=== PATIENT | male | born 1970 | race Caucasian/White ===

== ENCOUNTER 2020-12-13 08:29 | Inpatient (IN) ==
--- OUTSIDE RECORDS SUMMARY | 2020-12-13 08:32 | External Medical Summary | Continuity of Care Document ---
:1970 Author Name Julianne Lee Address Unavailable Unavailable , Care Team Providers Name Role Phone Julianne Lee Unavailable 1@[email or web address] PCP, UNKNOWN Unavailable Unavailable Problems Active medical history not documented Allergies and Adverse Reactions Allergy history not documented Medications Medications not documented Procedures Procedures not documented Immunizations Immunizations not documented Plan of Treatment Planned Observations Planned Goals not documented Results No Known Results Results not documented
--- OUTSIDE RECORDS SUMMARY | 2020-12-13 08:32 | External Medical Summary | Continuity of Care Document ---
:1970 Author Name Julianne Lee Address Unavailable Unavailable , Care Team Providers Name Role Phone Julianne Lee Unavailable [email or web address] PCP, UNKNOWN Unavailable Unavailable Problems Active medical history not documented Allergies and Adverse Reactions Allergy history not documented Medications Medications not documented Procedures Procedures not documented Immunizations Immunizations not documented Plan of Treatment Planned Observations Planned Goals not documented Results No Known Results Results not documented
--- NOTE | 2020-12-13 10:34 | Emergency Department Note ---
Impression & Plan COVID-19, Pneumonia, Hypoxia ED Provider Note NAME: MALIA ROGERS AGE: 50 SEX: M : 1970 ARRIVES VIA: Walk-In INFORMANT: Patient, ED PROVIDER(S): Armand Moody DO CHIEF COMPLAINT: Shortness of breath HPI: The patient is a 50-year-old male who presented to the emergency department for an evaluation of difficulty breathing and cough. The patient has had symptoms for approximately 8 days. He states that he has been exposed to COVID- 19 as his significant other is also positive for COVID-19. He had a test with his family doctor which was returned recently positive for COVID-19. Since that time he is noticed worsening symptoms including shortness of breath dyspnea on exertion and pain in the chest with coughing. He notices no lower extremity edema. He has had no nausea or vomiting. He has had episodes of fever and chills. The patient has been trying [id number] medication without minimal relief. His significant other was significantly dehydrated and it was recommended that he come to the emergency department for further evaluation because his symptoms appear to be worsening instead of getting better. ROS: See above HPI for pertinent positives & negatives. A total of 10 systems reviewed and were otherwise negative. PAST MEDICAL HISTORY: See Below PAST SURGICAL HISTORY: See Below FAMILY HISTORY: See Below SOCIAL HISTORY: See Below HOME MEDICATIONS: See Below ALLERGIES: See Below VITALS: See Below PHYSICAL EXAMINATION: GENERAL: The patient is awake and alert. He is somewhat anxious appearing. EYES: The conjunctivae are clear. The pupils are round and reactive. EARS, NOSE, MOUTH AND THROAT: The nose is without any evidence of any deformity. NECK: The neck is nontender and supple. RESPIRATORY: Shallow respirations were noted. There were scattered rhonchi noted throughout. There was mild conversational dyspnea appreciated. There were no retractions. CARDIOVASCULAR: Regular rate and rhythm noted there no murmurs rubs or gallops normal S1 normal S2. GASTROINTESTINAL: The abdomen is soft. Abdomen is nontender. MUSCULOSKELETAL/EXTREMITIES: There is no evidence of gross deformity full range of motion is noted in the hips and shoulders. SKIN: There is no obvious evidence of any rash. There are no petechiae, pallor or cyanosis noted. NEUROLOGIC: Patient is awake alert and oriented x3. MEDICAL DECISION MAKING: The patient is a 50-year-old male who presented to the emergency department for an evaluation of difficulty breathing. The patient was recently diagnosed with COVID-19. The patient presented to the emergency department with worsening symptoms. He was found to have significant infiltrate on chest x-ray. I discussed the patient's laboratory and radiographic studies with him. Because of the degree of symptoms I also discussed this case with the on-call [facility] hospitalist. They've agreed to evaluate the patient in the emergency department for further management and disposition. Triage Nursing notes reviewed. Prior medical records reviewed Vital Signs: reviewed and remarkable for hypoxia Reactive airway disease, pneumonia, pneumothorax, COPD, CHF, infections, cardiac ischemia, pulmonary embolism, musculoskeletal, gastrointestinal, as well as other pathologies. ER treatment provided: See below Diagnostics interpreted by me: ECG: EKG was obtained in the emergency department. My interpretation is normal sinus rhythm at 72 bpm. There was no ectopy. Inferior T wave abnormalities were noted. This was compared to a tracing from 08/19/2008. No significant changes were noted Cardiac Monitoring: An order was placed for continuous cardiac monitoring. The monitor shows a rate of 85 bpm with sinus rhythm. Laboratory studies: As stated above and show below. Imaging studies: See below Consultation(s): 1215: I discussed this case with Dr. Clark. Past Med/Surg History Medical History Hypertension Low back pain Social History Smoking Status: Former smoker Hx Alcohol Use: No Hx Substance Use: No Preferred Language: Armenian Communication Ability: Effective Bale Piler Required: No Beliefs That Will Affect Care: None Current Living Situation: Spouse Other Information That Helps Us Care for You: No Feels Safe at Home: Yes Assistive Devices: Oxygen - Continuous Allergies Allergies Allergy/AdvReac Type Severity Reaction Status Date / Time atenolol Allergy Unknown TIRED Verified 12/13/20 12:47 Home Meds Home Medications Medication Instructions Recorded Confirmed dextroamphetamine-amphetamine 20 mg PO DAILY 12/13/20 12/13/20 [Adderall XR] hydrochlorothiazide 25 mg PO DAILY 12/13/20 12/13/20 lisinopril 40 mg PO DAILY 12/13/20 12/13/20 Results & Data (ED) Vital Signs Vital Signs - 24 hr 12/13/20 08:45 12/13/20 11:33 12/13/20 11:35 Temperature 35.8 C L Temperature Source Temporal Artery Scan Pulse Rate 82 72 73 Pulse Rate [Apical] 74 Pulse Rate [Recovery] Pulse Rate from SpO2 Sensor 73 Respiratory Rate 28 H 24 19 Respiratory Rate [Recovery] Respiratory Effort / Characteristics Non-Labored Spontaneous Respiratory Depth Normal Respiratory Pattern Regular Blood Pressure 112/70 125/65 Blood Pressure [Right Arm] 125/65 Blood Pressure Mean 84 85 Blood Pressure Mean [Right Arm] 85 Pulse Oximetry 92 94 91 Pulse Oximetry [Recovery] Oxygen Delivery Method Room Air Room Air Oxygen Flow Rate Sepsis Recent Fever Within 48 Hours Yes Sepsis New/Unexplained Change in Mental Status No Sepsis Action Taken by Nursing No Action Required 12/13/20 11:44 12/13/20 12:00 12/13/20 12:20 Temperature Temperature Source Pulse Rate 74 73 Pulse Rate [Apical] Pulse Rate [Recovery] 88 Pulse Rate from SpO2 Sensor 74 73 Respiratory Rate 26 H 26 H Respiratory Rate [Recovery] 28 H Respiratory Effort / Characteristics Respiratory Depth Respiratory Pattern Blood Pressure 94/60 L Blood Pressure [Right Arm] Blood Pressure Mean 71 Blood Pressure Mean [Right Arm] Pulse Oximetry 94 94 Pulse Oximetry [Recovery] 91 Oxygen Delivery Method Room Air Oxygen Flow Rate Sepsis Recent Fever Within 48 Hours Sepsis New/Unexplained Change in Mental Status Sepsis Action Taken by Nursing 12/13/20 12:21 12/13/20 12:30 Temperature Temperature Source Pulse Rate 76 75 Pulse Rate [Apical] Pulse Rate [Recovery] Pulse Rate from SpO2 Sensor 76 77 Respiratory Rate 24 24 Respiratory Rate [Recovery] Respiratory Effort / Characteristics Respiratory Depth Respiratory Pattern Blood Pressure 113/72 Blood Pressure [Right Arm] Blood Pressure Mean 85 Blood Pressure Mean [Right Arm] Pulse Oximetry 95 99 Pulse Oximetry [Recovery] Oxygen Delivery Method Nasal Cannula Nasal Cannula Oxygen Flow Rate 4 4 Sepsis Recent Fever Within 48 Hours Sepsis New/Unexplained Change in Mental Status Sepsis Action Taken by Intermediate Medications Current Medication List: was personally reviewed by me Laboratory Data Attestation: I reviewed the patient's lab results. Result diagrams: 12/13/20 11:19 12/13/20 11:19 Lab Results 12/13/20 12/13/20 12/13/20 Range/Units 11:19 11:19 11:19 WBC 2.55 L (4.8-10.8) K/uL RBC 4.62 L (4.7-6.1) M/uL Hgb 14.1 (14.0-18.0) g/dL Hct 40.1 L (42-52) % MCV 86.8 (80-100) fL MCH 30.5 (25-34) pg MCHC 35.2 (32-36) g/dL RDW Std Deviation 40.4 (36.4-46.3) fL RDW Coeff of Barbie 12.7 (11.5-14.5) % Plt Count 140 (130-400) K/uL MPV 10.7 H (7.4-10.4) fL Immature Gran % (Auto) 0.0 % Neut % (Auto) 67.0 % Lymph % (Auto) 26.7 % [place] % (Auto) 5.9 % Eos % (Auto) 0.0 % Baso % (Auto) 0.4 % Neut # (Auto) 1.71 (1.4-6.5) K/uL Lymph # (Auto) 0.68 L (1.2-3.4) K/uL [place] # (Auto) 0.15 (0.11-0.59) K/uL Eos # (Auto) 0.00 (0-0.5) K/uL Baso # (Auto) 0.01 (0-0.2) K/uL Immature Gran # (Auto) 0.00 (0.00-0.02) K/uL PT 10.8 (9.0-12.0) Seconds INR 1.1 (0.9-1.1) APTT 29.2 (21.0-31.0) Seconds PTT Ratio 1.1 Sodium 136 (136-145) mmol/L Potassium 3.3 L (3.5-5.1) mmol/L Chloride 100 (98-107) mmol/L Carbon Dioxide 30 (21-32) mmol/L Anion Gap 5.0 (3-11) BUN 10 (7-18) mg/dl Creatinine 1.02 (0.6-1.4) mg/dl Est Cr Clr Drug Dosing 122.6 ml/min Est GFR ( Amer) 98.9 Est GFR (Non-Af Amer) 85.3 BUN/Creatinine Ratio 10.2 (10-20) Glucose 93 (70-99) mg/dl Calcium 8.1 L (8.5-10.1) mg/dl Total Bilirubin 0.4 (0.2-1) mg/dl AST 35 (15-37) U/L ALT 47 (12-78) U/L Alkaline Phosphatase 45 (45-117) U/L Troponin I < 0.015 (0-0.045) ng/ml Total Protein 6.8 (6.4-8.2) gm/dl Albumin 3.3 L (3.4-5.0) gm/dl Globulin 3.5 (2.5-4.0) gm/dl Albumin/Globulin Ratio 1.0 (0.9-2) COVID-19 Eval Order SARS-CoV-2 (PCR) (Negative) Influenza Type A (PCR) (Neg) Influenza Type B (PCR) (Neg) RSV (RT-PCR) (Neg) 12/13/20 12/13/20 Range/Units 12:25 12:25 WBC (4.8-10.8) K/uL RBC (4.7-6.1) M/uL Hgb (14.0-18.0) g/dL Hct (42-52) % MCV (80-100) fL MCH (25-34) pg MCHC (32-36) g/dL RDW Std Deviation (36.4-46.3) fL RDW Coeff of Barbie (11.5-14.5) % Plt Count (130-400) K/uL MPV (7.4-10.4) fL Immature Gran % (Auto) % Neut % (Auto) % Lymph % (Auto) % [place] % (Auto) % Eos % (Auto) % Baso % (Auto) % Neut # (Auto) (1.4-6.5) K/uL Lymph # (Auto) (1.2-3.4) K/uL [place] # (Auto) (0.11-0.59) K/uL Eos # (Auto) (0-0.5) K/uL Baso # (Auto) (0-0.2) K/uL Immature Gran # (Auto) (0.00-0.02) K/uL PT (9.0-12.0) Seconds INR (0.9-1.1) APTT (21.0-31.0) Seconds PTT Ratio Sodium (136-145) mmol/L Potassium (3.5-5.1) mmol/L Chloride (98-107) mmol/L Carbon Dioxide (21-32) mmol/L Anion Gap (3-11) BUN (7-18) mg/dl Creatinine (0.6-1.4) mg/dl Est Cr Clr Drug Dosing ml/min Est GFR ( Amer) Est GFR (Non-Af Amer) BUN/Creatinine Ratio (10-20) Glucose (70-99) mg/dl Calcium (8.5-10.1) mg/dl Total Bilirubin (0.2-1) mg/dl AST (15-37) U/L ALT (12-78) U/L Alkaline Phosphatase (45-117) U/L Troponin I (0-0.045) ng/ml Total Protein (6.4-8.2) gm/dl Albumin (3.4-5.0) gm/dl Globulin (2.5-4.0) gm/dl Albumin/Globulin Ratio (0.9-2) COVID-19 Eval Order [facility]FluRsv at [facility] SARS-CoV-2 (PCR) POSITIVE A* (Negative) Influenza Type A (PCR) Negative (Neg) Influenza Type B (PCR) Negative (Neg) RSV (RT-PCR) Negative (Neg) Administered Medications Enoxaparin Sodium (Enoxaparin 80 Mg/0.8 Ml Syr) 70 mg SQ Q12 [facility] Stop: 01/12/21 15:59 Last Admin: 12/13/20 16:40 Dose: 70 mg Documented by: [id number] Sodium Chloride (Sodium Chloride 0.9% 10ml Flush) 30 ml IV DAILY@1200 [facility] Stop: 12/17/20 12:01 Last Admin: 12/13/20 16:31 Dose: 30 ml Documented by: [id number] Discontinued Medications Azithromycin (Azithromycin 250 Mg Tab) 500 mg PO NOW ONE Stop: 12/13/20 12:42 Last Admin: 12/13/20 13:15 Dose: 500 mg Documented by: [id number] Dexamethasone Sodium Phosphate (DexamethasonePf 10 Mg/Ml Vial) 10 mg IV NOW ONE Stop: 12/13/20 11:45 Last Admin: 12/13/20 12:21 Dose: Not Given Documented by: [id number] Dexamethasone Sodium Phosphate (DexamethasonePf 10 Mg/Ml Vial) 10 mg IV NOW ONE Stop: 12/13/20 11:59 Last Admin: 12/13/20 12:21 Dose: 10 mg Documented by: [id number] Magnesium Sulfate/Dextrose (Magnesium Sulfate / D5w) 1 gm in 100 mls @ 50 mls/hr IV NOW STA Stop: 12/13/20 15:08 Last Infusion: 12/13/20 15:20 Dose: 0 mls/hr Documented by: [id number] Admin: 12/13/20 13:19 Dose: 50 mls/hr Documented by: [id number] Remdesivir 200 mg/ Sodium (Chloride) 250 mls @ 125 mls/hr IV TODAY@1400 ONE; Protocol Stop: 12/13/20 15:59 Last Infusion: 12/13/20 16:31 Dose: 0 mls/hr Documented by: [id number] Admin: 12/13/20 14:08 Dose: 125 mls/hr Documented by: [id number] Imaging Data Radiologist's Impression: Patient: MALIA ROGERS Date: 12/13/20MR#: [id number]: [address] ID:[id number]: [facility]: 1970[facility] [place] [place] [address]Ing: 50Location: EDSex: MRoom/Bed:Att Phy:Diagnosis: POSITIVE COVIDPri Phy: Raza Starkey, DOService Date: 12/13/20Fam Phy:Interpreting Phy: Sheldon Dhaliwal MDAdmit Phy: Ordering Phy: Armand Moody DO cc: ~ XR chest 1V portable CLINICAL HISTORY: cough COMPARISON STUDY: No previous studies for comparison. FINDINGS: The heart is mildly enlarged. There are multifocal airspace opacity suspicious for a multifocal pneumonia. Clinical and radiographic follow-up is recommended. There are no significant pleural effusions.[ IMPRESSION: Multifocal airspace opacities suspicious for a multifocal pneumonia ACT 112: Negative or not required by law. Electronically signed by: Sheldon Dhaliwal M.D. 12/13/2020 10:49 AM Dictated: 12/13/20 1048Transcribed: 12/13/20 1048 Discharge Plan Visit Data Chief Complaint: Flu Like Symptoms Stated Complaint: POSITIVE COVID ED Provider: Armand Moody Discharge Problem: COVID-19, Pneumonia, Hypoxia Patient Disposition: Admitted As Inpatient Condition: Good Discharge Instructions Interventions: ED Discharge Assessment Last Done: 12/13/20 13:06 Discharge Problem: Pneumonia Qualifiers: Pneumonia type: due to unspecified organism Laterality: bilateral Lung location: unspecified part of lung Qualified Code(s): J18.9 - Pneumonia, unspecified organism
--- NOTE | 2020-12-13 10:50 | XRay Report ---
XR chest 1V portable CLINICAL HISTORY: cough COMPARISON STUDY: No previous studies for comparison. FINDINGS: The heart is mildly enlarged. There are multifocal airspace opacity suspicious for a multif ocal pneumonia. Clinical and radiographic follow-up is recommended. There are no significant pleural effusions.[ IMPRESSION: Multifocal airspace opacities suspicious for a multifocal pneumonia ACT 112: Negative or not required by law. Electronically signed by: Sheldon Dhaliwal M.D. 12/13/2020 10:49 AM
[2020-12-13 11:41] LABS: Basophils # (auto) 0.01 K/uL (0-0.2); Basophils % (auto) 0.4 %; Hematocrit (blood only) 40.1 % (42-52); Hemoglobin 14.1 g/dL (14.0-18.0); Lymphocytes # (auto) 0.68 K/uL (1.2-3.4); Lymphocytes % (auto) 26.7 %; Mean Corpuscular Hemoglobin 30.5 pg (25-34); Mean Corpuscular Hgb Conc 35.2 g/dL (32-36); Mean Corpuscular Volume 86.8 fL (80-100); Mean Platelet Volume 10.7 fL (7.4-10.4); Monocytes # (auto) 0.15 K/uL (0.11-0.59); Monocytes % (auto) 5.9 %; Neutrophils # (auto) 1.71 K/uL (1.4-6.5); Platelet Count 140 K/uL (130-400); RDW Coefficient of Variation 12.7 % (11.5-14.5); RDW Standard Deviation 40.4 fL (36.4-46.3); Red Blood Count 4.62 M/uL (4.7-6.1); White Blood Count 2.55 K/uL (4.8-10.8)
[2020-12-13 11:44] LABS: INR 1.1 (0.9-1.1); Partial Thromboplastin Ratio 1.1; Partial Thromboplastin Time 29.2 Seconds (21.0-31.0); Prothrombin Time 10.8 Seconds (9.0-12.0)
[2020-12-13] MEDS ORDERED: dexAMETHasone**PF** 10 MG/ML VIAL IV ONE ×2 (11:44→11:58)
[2020-12-13 11:49] LABS: Alanine Aminotransferase 47 U/L (12-78); Albumin Level 3.3 gm/dl (3.4-5.0); Aspartate Aminotransferase 35 U/L (15-37); BUN Creatinine Ratio 10.2 (10-20); Blood Urea Nitrogen 10 mg/dl (7-18); Calcium 8.1 mg/dl (8.5-10.1); Carbon Dioxide 30 mmol/L (21-32); Chloride 100 mmol/L (98-107); Creatinine Clr Calc Pharmacy 122.6 ml/min; Est GFR (African American) 98.9; Est GFR (Non-African American) 85.3; Glucose 93 mg/dl (70-99); Potassium 3.3 mmol/L (3.5-5.1); Sodium 136 mmol/L (136-145)
[2020-12-13 11:54] LABS: Alkaline Phosphatase 45 U/L (45-117); Bilirubin,Total 0.4 mg/dl (0.2-1); Globulin 3.5 gm/dl (2.5-4.0); Total Protein 6.8 gm/dl (6.4-8.2); Troponin I < 0.015 ng/ml (0-0.045)
--- NOTE | 2020-12-13 12:33 | History & Physical Report ---
Date of Service December 13, 2020 Assessment & Plan (1) COVID-19: Patient is COVID-19 pneumonia and acute respiratory distress, respiration rate 24, no documented hypoxic oxygen saturations via the ER vital signs however ER physician told me personally that the patient sats were 85% Patient be brought in for dexamethasone remdesivir zinc Encourage self proning Continuing nocturnal BiPAP (2) Acute respiratory failure: Secondary to COVID-19 pneumonia concern for possible bacteria bronchitis azithromycin will be used (3) HTN (hypertension): Lisinopril hydrochlorothiazide his blood pressures are stable he did not take his medications this morning we will be if undocumented he will be held at this time and quantity will use as needed for blood pressure control (4) ADHD: Patient wants Adderall held at this time (5) Hypokalemia: Potassium will be augmented orally and rechecked (6) DVT prophylaxis: Patient will be on 0.5 mg/kg weight-based Lovenox therapy for DVT prevention with Covid infection History of Present Illness Primary Care Provider: Desiree Crespo PA-C 50-year-old male who presented to the emergency department for an evaluation of difficulty breathing and cough. The patient has had symptoms for approximately 8 days. His and children are also positive for COVID-19. He had a test with his family doctor which was returned recently positive for COVID-19. His was seen in the ER and sent home with a pulse oximeter he was using her pulse oximeter noting his sats were in the 80s. He is markedly dyspneic on exertion. He had 1 day of diarrhea approximately 5 days ago took Imodium and since resolved. He has lost his taste and smell but he feels his taste is slowly coming back. He is significantly breathless with minimal movements around the room. He typically wears BiPAP at night Allergies Allergy/AdvReac Type Severity Reaction Status Date / Time atenolol Allergy Unknown TIRED Verified 12/13/20 12:47 Home Medications Medication Instructions Recorded Confirmed Type dextroamphetamine-amphetamine 20 mg PO DAILY 12/13/20 12/13/20 History [Adderall XR] hydrochlorothiazide 25 mg PO DAILY 12/13/20 12/13/20 History lisinopril 40 mg PO DAILY 12/13/20 12/13/20 History Past Med/Surg History Medical History Hypertension Low back pain Social History Smoking Status: Former smoker Feels Safe at Home: Yes Review of Systems Review of Systems: Moderate exertional respiratory distress and fatigue no headache, blurry or double vision no speech or swallowing issues no chest pain, pressure or palpitations Shortness of breath at rest and with exertion nonproductive cough no abdominal pain, nausea or vomiting, resolved outpatient diarrhea no dysuria, hematuria or frequency no focal joint pain or swelling no back pain, CVA tenderness or radicular pain no bruising, bleeding or rashes no focal signs of weakness or numbness or altered sensation no complaints of anxiety or depression.. Physical Exam Physical Exam: The patient appeared morbidly obese and in moderate respiratory distress tachypneic accessory muscles used at rest Vital signs as documented. Head exam is normocephalic atraumatic no scleral icterus Neck is without JVD, thyromegaly, or carotid bruits. Lungs are coarse bilateral rhonchi are heard at the bases clearing towards the apex Cardiac exam, Rhythm is regular.. No murmurs, rubs or gallops. Abdominal exam reveals normal bowel sounds, soft non tender, no masses Extremities are nonedematous and both pedal pulses are present Left forearm has scar which is a result of her previous crush injury Neurologic exam is alert and oriented, no focal loss of strength or sensation Skin is without bruises or rashes Psychologically is without concerns for anxiety or depression Results & Data Results & Data ([facility]) Vital Signs (Past 12 Hours) Vital Signs Temp Pulse Pulse Pulse Resp Resp BP 12/13/20 12:20 88 28 H 12/13/20 11:33 72 74 24 12/13/20 08:45 96.4 F L 82 28 H 112/70 BP Pulse Ox Pulse Ox 12/13/20 12:20 91 12/13/20 11:33 125/65 94 12/13/20 08:45 92 PG Care Time/CCT Total # of Minutes Spent Total Time Spent with Patient: Total time spent is greater than 50% in coordination of care (as documented) at patient's floor/unit and/or counseling patient: Coding Level of Care Code 41539 Initial Inpt Care Lvl 3 Diagnoses COVID-19 U07.1 Acute respiratory failure J96.00 HTN (hypertension) I10 ADHD F90.9 Hypokalemia E87.6 DVT prophylaxis Z29.9
[2020-12-13] MEDS ORDERED: AZITHROMYCIN 250 MG TAB PO ONE (12:41)
[2020-12-13] MEDS ORDERED: MAGNESIUM SULFATE / D5W 1 GM/100 ML BAG IV STA (13:09)
[2020-12-13] MEDS ORDERED: ALUMINUM/MAGNESIUM SUSP 30 ML UDC PO PRN (13:18)
[2020-12-13] MEDS ORDERED: ACETAMINOPHEN 325 MG TAB PO PRN (13:18)
[2020-12-13] MEDS ORDERED: cloNIDine HCL 0.1 MG TAB PO PRN (13:18)
[2020-12-13] MEDS ORDERED: MELATONIN 3 MG TAB PO PRN (13:18)
[2020-12-13] MEDS ORDERED: ONDANSETRON INJ 2 MG/ML 2 ML VIAL IV PRN (13:18)
[2020-12-13 13:19] LABS: Influenza A virus by PCR Negative (Neg); Influenza B virus by PCR Negative (Neg); RSV by PCR Negative (Neg)
[2020-12-13] MEDS ORDERED: REMDESIVIR 200 MG in SODIUM CHLORIDE 0.9% 210 ML IV ONE (14:00)
[2020-12-13 14:04] LABS: SARS CoV2 RNA(COVID-19) InHosp POSITIVE (Negative)
--- NOTE | 2020-12-13 16:06 | Electrocardiogram Report ---
Test Reason : Blood Pressure : / mmHG Vent. Rate : 072 BPM Atrial Rate : 072 BPM P-R Int : 158 ms QRS Dur : 090 ms QT Int : 368 ms P-R-T Axes : -09 045 008 degrees QTc Int : 402 ms Normal sinus rhythm Normal ECG When compared with ECG of 19-AUG-2008 19:20, IN interval has decreased Confirmed by Bravo Jackson ([id number]) on 12/13/2020 4:05:44 PM Referred By: REFERRED SELF Confirmed By:Ilir Jackson
[2020-12-13] MEDS: SODIUM CHLORIDE 0.9% 10ML FLUSH IV SCH (16:31)
[2020-12-13] MEDS: ENOXAPARIN 80 MG/0.8 ML SYR SQ SCH (16:40)
[2020-12-13] MEDS: POTASSIUM CHLORIDE CRTAB 20 MEQ TABCR PO SCH (19:40)
[2020-12-14] MEDS: ENOXAPARIN 80 MG/0.8 ML SYR SQ SCH ×2 (08:20→20:39)
[2020-12-14] MEDS: dexAMETHasone 6 MG in SYRINGE 0 ML IV SCH (08:20)
[2020-12-14] MEDS: AZITHROMYCIN 250 MG TAB PO SCH (08:20)
[2020-12-14] MEDS: POTASSIUM CHLORIDE CRTAB 20 MEQ TABCR PO SCH ×2 (08:20→20:42)
[2020-12-14] MEDS: ZINC SULFATE 220 MG CAPSULE PO SCH (08:20)
[2020-12-14 08:57] LABS: Basophils # (auto) 0.01 K/uL (0-0.2); Basophils % (auto) 0.4 %; Hematocrit (blood only) 43.4 % (42-52); Hemoglobin 15.3 g/dL (14.0-18.0); Immature Granulocytes # (auto) 0.01 K/uL (0.00-0.02); Immature Granulocytes % (auto) 0.4 %; Lymphocytes # (auto) 0.69 K/uL (1.2-3.4); Lymphocytes % (auto) 30.8 %; Mean Corpuscular Hemoglobin 30.4 pg (25-34); Mean Corpuscular Hgb Conc 35.3 g/dL (32-36); Mean Corpuscular Volume 86.3 fL (80-100); Mean Platelet Volume 11.4 fL (7.4-10.4); Monocytes # (auto) 0.31 K/uL (0.11-0.59); Monocytes % (auto) 13.8 %; Neutrophils # (auto) 1.22 K/uL (1.4-6.5); Neutrophils % (auto) 54.6 %; Platelet Count 177 K/uL (130-400); RDW Coefficient of Variation 12.7 % (11.5-14.5); RDW Standard Deviation 40.5 fL (36.4-46.3); Red Blood Count 5.03 M/uL (4.7-6.1); White Blood Count 2.24 K/uL (4.8-10.8)
[2020-12-14 10:02] LABS: Albumin Globulin Ratio 0.8 (0.9-2); Albumin Level 3.4 gm/dl (3.4-5.0); BUN Creatinine Ratio 14.6 (10-20); Bilirubin,Total 0.5 mg/dl (0.2-1); Creatinine Clr Calc Pharmacy 123.8 ml/min; Est GFR (African American) 100.1; Est GFR (Non-African American) 86.3; Globulin 4.1 gm/dl (2.5-4.0); Magnesium 2.3 mg/dl (1.8-2.4); Potassium 3.9 mmol/L (3.5-5.1); Total Protein 7.5 gm/dl (6.4-8.2)
[2020-12-14] MEDS: REMDESIVIR 100 MG in SODIUM CHLORIDE 0.9% 230 ML IV SCH (12:01)
[2020-12-14] MEDS: SODIUM CHLORIDE 0.9% 10ML FLUSH IV SCH (13:19)
[2020-12-14] MEDS ORDERED: BENZONATATE 100 MG CAPSULE PO PRN (14:29)
--- NOTE | 2020-12-14 14:30 | Hospitalist Progress Note ---
Date of Service December 14, 2020 Assessment & Plan (1) COVID-19: Presents with COVID-19 pneumonia and acute respiratory distress, respiration rate 24, no documented hypoxic oxygen saturations via the ER vital signs however patient reports his pulse ox was 85% at home Chest x-ray with multifocal pneumonia He is currently on day #10 of his illness -Continue dexamethasone x10-day course-last dose will be on 12/22 -Continue Remdesivir x5-day course or shorter if stable for discharge -Continue azithromycin x5-day course-last day of treatment will be 12/17 Encourage self proning if possible Continuing nocturnal BiPAP which is what he uses at home Wean off oxygen as tolerated-May need a two-step prior to discharge -We will add on antitussives and encouraged him to use incentive spirometry more aggressively once cough is controlled-add on Tessalon Perles and guaifenesin with dextromethorphan as needed (2) Acute respiratory failure: As above, secondary to COVID-19 pneumonia -Concern for possible bacteria bronchitis-azithromycin will be continued x5-day course (3) HTN (hypertension): Blood pressures here are normal and his lisinopril-HCTZ is currently being held He is not having any nausea vomiting or diarrhea and is not dehydrated -Continue to hold lisinopril HCTZ for now Clonidine ordered as needed (4) ADHD: Patient wants Adderall held at this time (5) Hypokalemia: Low upon admission and replaced-now resolved Follow BMP (6) GERD (gastroesophageal reflux disease): Patient with indigestion improved with Maalox but may be worsened by steroids Add on Pepcid 20 mg p.o. twice daily (7) DVT prophylaxis: Patient will be on 0.5 mg/kg weight-based Lovenox therapy for DVT prevention with Covid infection Disposition-continued stay Admission and Anticipated Discharge Date Admission Date: December 13, 2020 Subjective Still coughing when takes deep breaths with incentive spirometry. Not bringing up any mucus. No chest pain. No nausea or vomiting, no diarrhea. He did have some heartburn which was relieved with Maalox. He is complain of it being hot in the room despite the air being on the way down. No fevers Telemetry with normal sinus rhythm with rates in the 60s to 70s Review of Systems Review of Systems: All systems reviewed & are unremarkable except as noted in HPI & below Physical Exam Constitutional: WD/WN, vitals as above + obese Eyes: + anicteric sclerae Neck: trachea midline, no thyromegaly Respiratory: normal respiratory effort and + cough Auscultation: + crackles (At bases bilaterally); no rhonchi and no wheezes Cardiovascular: RRR, no murmur, no edema Chest (Breasts): Chest: normal inspection of chest Gastrointestinal (Abdomen): normal bowel sounds, soft, nontender, no hepatosplenomegaly Musculoskeletal: Extremities: extremities normal to inspection; no cyanosis and no clubbing Skin: no rashes, warm and dry Neurologic: moves all extremities and awake; no focal motor deficits Psychiatric: A+Ox3, euthymic affect Lymphatic: no lymphedema Results & Data Results & Data ([facility]) Vital Signs (Past 12 Hours) Vital Signs Temp Pulse Pulse Resp BP Pulse Ox 12/14/20 11:43 36.6 C 12/14/20 08:00 67 12/14/20 07:49 37.0 C 68 18 111/73 94 12/14/20 03:42 36.8 C 64 20 109/64 96 12/14/20 02:59 65 22 93 Laboratory Results 12/14/20 12/14/20 12/14/20 Range/Units 05:56 05:56 05:56 WBC 2.24 L (4.8-10.8) K/uL RBC 5.03 (4.7-6.1) M/uL Hgb 15.3 (14.0-18.0) g/dL Hct 43.4 (42-52) % MCV 86.3 (80-100) fL MCH 30.4 (25-34) pg MCHC 35.3 (32-36) g/dL RDW Std Deviation 40.5 (36.4-46.3) fL RDW Coeff of Barbie 12.7 (11.5-14.5) % Plt Count 177 (130-400) K/uL MPV 11.4 H (7.4-10.4) fL Immature Gran % (Auto) 0.4 % Neut % (Auto) 54.6 % Lymph % (Auto) 30.8 % [place] % (Auto) 13.8 % Eos % (Auto) 0.0 % Baso % (Auto) 0.4 % Neut # (Auto) 1.22 L (1.4-6.5) K/uL Lymph # (Auto) 0.69 L (1.2-3.4) K/uL [place] # (Auto) 0.31 (0.11-0.59) K/uL Eos # (Auto) 0.00 (0-0.5) K/uL Baso # (Auto) 0.01 (0-0.2) K/uL Immature Gran # (Auto) 0.01 (0.00-0.02) K/uL Sodium 136 (136-145) mmol/L Potassium 3.9 D (3.5-5.1) mmol/L Chloride 100 (98-107) mmol/L Carbon Dioxide 31 (21-32) mmol/L Anion Gap 4.0 (3-11) BUN 15 (7-18) mg/dl Creatinine 1.01 (0.6-1.4) mg/dl Est Cr Clr Drug Dosing 123.8 ml/min Est GFR ( Amer) 100.1 Est GFR (Non-Af Amer) 86.3 BUN/Creatinine Ratio 14.6 (10-20) Glucose 104 H (70-99) mg/dl Calcium 9.0 (8.5-10.1) mg/dl Magnesium 2.3 (1.8-2.4) mg/dl Total Bilirubin 0.5 (0.2-1) mg/dl AST 42 H (15-37) U/L ALT 59 (12-78) U/L Alkaline Phosphatase 46 (45-117) U/L C-Reactive Protein 4.00 H (0-0.29) mg/dl Total Protein 7.5 (6.4-8.2) gm/dl Albumin 3.4 (3.4-5.0) gm/dl Globulin 4.1 H (2.5-4.0) gm/dl Albumin/Globulin Ratio 0.8 L (0.9-2) Triglycerides 59 (0-150) mg/dl Cholesterol 79 (0-200) mg/dl LDL Cholesterol, Calc 40 mg/dl VLDL Cholesterol, Calc 12 mg/dl HDL Cholesterol 27 mg/dl Cholesterol/HDL Ratio 3 PG Care Time/CCT Total # of Minutes Spent Total Time Spent with Patient: Total time spent is greater than 50% in coordination of care (as documented) at patient's floor/unit and/or counseling patient: Coding Level of Care Code 62962 Subseq Hosp Care Lvl 3 Diagnoses COVID-19 U07.1 Acute respiratory failure J96.00 HTN (hypertension) I10 ADHD F90.9 Hypokalemia E87.6 GERD (gastroesophageal reflux disease) K21.9 DVT prophylaxis Z29.9
[2020-12-14] MEDS: FAMOTIDINE 20 MG TAB PO SCH ×2 (16:04→20:42)
[2020-12-14] MEDS: guaiFENesin/DEXTROM SYRUP 200MG/20MG 10ML UDC PO PRN ×2 (16:04→22:41)
[2020-12-14] MEDS ORDERED: SODIUM CHLORIDE 0.65% NA SOLN 45 ML (OCEAN) PRN (23:01)
[2020-12-14] MEDS ORDERED: SODIUM CHLORIDE 0.65% NA SOLN 45 ML (OCEAN) ONE (23:03)
[2020-12-15 07:55] LABS: Basophils # (auto) 0.03 K/uL (0-0.2); Basophils % (auto) 0.8 %; Hematocrit (blood only) 42.1 % (42-52); Hemoglobin 14.6 g/dL (14.0-18.0); Immature Granulocytes # (auto) 0.01 K/uL (0.00-0.02); Immature Granulocytes % (auto) 0.3 %; Lymphocytes # (auto) 1.26 K/uL (1.2-3.4); Lymphocytes % (auto) 32.6 %; Mean Corpuscular Hemoglobin 30.2 pg (25-34); Mean Corpuscular Hgb Conc 34.7 g/dL (32-36); Mean Corpuscular Volume 87.2 fL (80-100); Mean Platelet Volume 11.3 fL (7.4-10.4); Monocytes # (auto) 0.48 K/uL (0.11-0.59); Monocytes % (auto) 12.4 %; Neutrophils # (auto) 2.09 K/uL (1.4-6.5); Neutrophils % (auto) 53.9 %; Platelet Count 171 K/uL (130-400); RDW Coefficient of Variation 12.6 % (11.5-14.5); RDW Standard Deviation 40.2 fL (36.4-46.3); Red Blood Count 4.83 M/uL (4.7-6.1); White Blood Count 3.87 K/uL (4.8-10.8)
[2020-12-15 08:32] LABS: Albumin Level 3.2 gm/dl (3.4-5.0); BUN Creatinine Ratio 18.3 (10-20); C Reactive Protein 1.53 mg/dl (0-0.29); Calcium 8.8 mg/dl (8.5-10.1); Creatinine Clr Calc Pharmacy 135.9 ml/min; Est GFR (Non-African American) 96.6; Magnesium 2.2 mg/dl (1.8-2.4); Potassium 4.2 mmol/L (3.5-5.1)
[2020-12-15 08:37] LABS: Albumin Globulin Ratio 0.8 (0.9-2); Bilirubin,Total 0.5 mg/dl (0.2-1); Globulin 3.8 gm/dl (2.5-4.0)
[2020-12-15] MEDS: dexAMETHasone 6 MG in SYRINGE 0 ML IV SCH (08:43)
[2020-12-15] MEDS: ENOXAPARIN 80 MG/0.8 ML SYR SQ SCH ×2 (08:43→19:51)
[2020-12-15] MEDS: AZITHROMYCIN 250 MG TAB PO SCH (08:44)
[2020-12-15] MEDS: ZINC SULFATE 220 MG CAPSULE PO SCH (08:44)
[2020-12-15] MEDS: FAMOTIDINE 20 MG TAB PO SCH ×2 (08:44→19:51)
[2020-12-15] MEDS: SODIUM CHLORIDE 0.9% 10ML FLUSH IV SCH (11:54)
[2020-12-15] MEDS: REMDESIVIR 100 MG in SODIUM CHLORIDE 0.9% 230 ML IV SCH (11:54)
--- NOTE | 2020-12-15 14:29 | Hospitalist Progress Note ---
Date of Service December 15, 2020 Assessment & Plan (1) COVID-19: Presents with COVID-19 pneumonia and acute respiratory distress, respiration rate 24, no documented hypoxic oxygen saturations via the ER vital signs however patient reports his pulse ox was 85% at home Chest x-ray with multifocal pneumonia He is currently on day #11 of his illness -Continue dexamethasone x10-day course-last dose will be on 12/22 -Continue Remdesivir x5-day course or shorter if stable for discharge-last dose would be 12/17 if has 5 day course -Continue azithromycin x5-day course-last day of treatment will be 12/17 Encourage self proning if possible Continuing nocturnal BiPAP which is what he uses at home Wean off oxygen as tolerated-May need a two-step prior to discharge -continue antitussives and encouraged him to use incentive spirometry more aggressively once cough is controlled- Tessalon Perles and guaifenesin with dextromethorphan-will make scheduled (2) Acute respiratory failure: As above, secondary to COVID-19 pneumonia -Concern for possible bacteria bronchitis-azithromycin will be continued x5-day course (3) HTN (hypertension): Blood pressures here are normal and his lisinopril-HCTZ is currently being held developing some peripheral edema off his HCTZ x 2 days, secondary to dependent edema, obesity -restart HCTZ now and home lisinopril/HCT in the AM (4) ADHD: Patient wants Adderall held at this time (5) Hypokalemia: Low upon admission and replaced-now resolved (6) GERD (gastroesophageal reflux disease): Patient with indigestion improved with Maalox but may be worsened by steroids Added on Pepcid 20 mg p.o. twice daily while on steroids (7) DVT prophylaxis: Patient will be on 0.5 mg/kg weight-based Lovenox therapy for DVT prevention with Covid infection Disposition-continued stay Admission and Anticipated Discharge Date Admission Date: December 13, 2020 Subjective Feels about the same as yesterday; wants to make sure he's not discharged too soon as his is also pretty sick at home and he doesn't want her to try to take care of him when he gets home. Still coughing with deep inspiration although was able to get IS to 2500mL on three occasions today. Remains on 3LNC Is janae po. Tele with SB-NST, rates 50-70 Review of Systems Review of Systems: All systems reviewed & are unremarkable except as noted in HPI & below feels like starting to retain a little fluid in ankles, not on home HCTZ Physical Exam Constitutional: WD/WN, vitals as above + obese Eyes: + anicteric sclerae Neck: trachea midline, no thyromegaly Respiratory: normal respiratory effort and + cough Auscultation: + crackles (At bases bilaterally); no rhonchi and no wheezes Cardiovascular: Rate/Rhythm: regular rate and regular rhythm Heart Sounds: no murmur Extremities: + edema (trace edema distal legs bilat) Chest (Breasts): Chest: normal inspection of chest Gastrointestinal (Abdomen): normal bowel sounds, soft, nontender, no hepatosplenomegaly Musculoskeletal: Extremities: extremities normal to inspection; no cyanosis and no clubbing Skin: no rashes, warm and dry Neurologic: moves all extremities and awake; no focal motor deficits Psychiatric: A+Ox3, euthymic affect Lymphatic: no lymphedema Results & Data Results & Data ([facility]) Vital Signs (Past 12 Hours) Vital Signs Temp Pulse Pulse Resp BP Pulse Ox Pulse Ox 12/15/20 11:14 36.6 C 64 18 124/82 95 12/15/20 08:45 69 95 12/15/20 07:51 36.8 C 66 20 124/82 95 12/15/20 04:19 36.9 C 12/15/20 04:14 55 L 18 95/65 L 92 12/15/20 03:14 72 12 93 Laboratory Results 12/15/20 12/15/20 12/15/20 Range/Units 07:27 07:27 07:27 WBC 3.87 L (4.8-10.8) K/uL RBC 4.83 (4.7-6.1) M/uL Hgb 14.6 (14.0-18.0) g/dL Hct 42.1 (42-52) % MCV 87.2 (80-100) fL MCH 30.2 (25-34) pg MCHC 34.7 (32-36) g/dL RDW Std Deviation 40.2 (36.4-46.3) fL RDW Coeff of Barbie 12.6 (11.5-14.5) % Plt Count 171 (130-400) K/uL MPV 11.3 H (7.4-10.4) fL Immature Gran % (Auto) 0.3 % Neut % (Auto) 53.9 % Lymph % (Auto) 32.6 % Cross % (Auto) 12.4 % Eos % (Auto) 0.0 % Baso % (Auto) 0.8 % Neut # (Auto) 2.09 (1.4-6.5) K/uL Lymph # (Auto) 1.26 (1.2-3.4) K/uL Cross # (Auto) 0.48 (0.11-0.59) K/uL Eos # (Auto) 0.00 (0-0.5) K/uL Baso # (Auto) 0.03 (0-0.2) K/uL Immature Gran # (Auto) 0.01 (0.00-0.02) K/uL Sodium 140 (136-145) mmol/L Potassium 4.2 (3.5-5.1) mmol/L Chloride 106 (98-107) mmol/L Carbon Dioxide 30 (21-32) mmol/L Anion Gap 4.0 (3-11) BUN 17 (7-18) mg/dl Creatinine 0.92 (0.6-1.4) mg/dl Est Cr Clr Drug Dosing 135.9 ml/min Est GFR ( Amer) 112.0 Est GFR (Non-Af Amer) 96.6 BUN/Creatinine Ratio 18.3 (10-20) Glucose 82 (70-99) mg/dl Calcium 8.8 (8.5-10.1) mg/dl Magnesium 2.2 (1.8-2.4) mg/dl Total Bilirubin 0.5 (0.2-1) mg/dl AST 30 (15-37) U/L ALT 49 (12-78) U/L Alkaline Phosphatase 46 (45-117) U/L C-Reactive Protein 1.53 H (0-0.29) mg/dl Total Protein 7.0 (6.4-8.2) gm/dl Albumin 3.2 L (3.4-5.0) gm/dl Globulin 3.8 (2.5-4.0) gm/dl Albumin/Globulin Ratio 0.8 L (0.9-2) Procalcitonin 0.06 (0-0.5) ng/ml PG Care Time/CCT Total # of Minutes Spent Total Time Spent with Patient: Total time spent is greater than 50% in coordination of care (as documented) at patient's floor/unit and/or counseling patient: Coding Level of Care Code 76284 Subseq Hosp Care Lvl 2 Diagnoses COVID-19 U07.1 Acute respiratory failure J96.00 HTN (hypertension) I10 ADHD F90.9 Hypokalemia E87.6 GERD (gastroesophageal reflux disease) K21.9 DVT prophylaxis Z29.9
[2020-12-15] MEDS: guaiFENesin/DEXTROM SYRUP 200MG/20MG 10ML UDC PO SCH ×2 (15:35→18:13)
[2020-12-15] MEDS: hydroCHLOROthiazide 25 MG TAB PO SCH (16:00)
[2020-12-16] MEDS: guaiFENesin/DEXTROM SYRUP 200MG/20MG 10ML UDC PO SCH ×5 (05:24→23:19)
[2020-12-16 07:04] LABS: Hematocrit (blood only) 42.8 % (42-52); Hemoglobin 14.7 g/dL (14.0-18.0); Mean Corpuscular Hemoglobin 30.2 pg (25-34); Mean Corpuscular Hgb Conc 34.3 g/dL (32-36); Mean Corpuscular Volume 87.9 fL (80-100); Mean Platelet Volume 11.6 fL (7.4-10.4); Platelet Count 202 K/uL (130-400); RDW Coefficient of Variation 12.6 % (11.5-14.5); RDW Standard Deviation 40.6 fL (36.4-46.3); Red Blood Count 4.87 M/uL (4.7-6.1); White Blood Count 4.07 K/uL (4.8-10.8)
[2020-12-16 07:33] LABS: Albumin Level 3.4 gm/dl (3.4-5.0); BUN Creatinine Ratio 20.4 (10-20); Calcium 8.9 mg/dl (8.5-10.1); Creatinine Clr Calc Pharmacy 136.5 ml/min; Est GFR (Non-African American) 96.6; Potassium 3.8 mmol/L (3.5-5.1)
[2020-12-16 07:36] LABS: Albumin Globulin Ratio 0.9 (0.9-2); Bilirubin,Total 0.6 mg/dl (0.2-1); Globulin 3.7 gm/dl (2.5-4.0); Total Protein 7.1 gm/dl (6.4-8.2)
[2020-12-16 07:39] LABS: ALC (manual) 1.17 K/uL (1.2-3.4); ANC (manual) 2.65 K/uL (1.4-6.5); Lymphocytes # (manual) 0.67 K/uL (1.2-3.4); Lymphocytes % (manual) 16.5 %; Monocytes # (manual) 0.25 K/uL (0.11-0.59); Monocytes % (manual) 6.1 %; Neutrophils # (manual) 2.65 K/uL (1.4-6.5); Neutrophils % (manual) 65.2 %; Reactive Lymphocytes % (manual) 12.2 %
[2020-12-16] MEDS: ENOXAPARIN 80 MG/0.8 ML SYR SQ SCH ×2 (09:04→20:20)
[2020-12-16] MEDS: dexAMETHasone 6 MG in SYRINGE 0 ML IV SCH (09:04)
[2020-12-16] MEDS: AZITHROMYCIN 250 MG TAB PO SCH (09:05)
[2020-12-16] MEDS: FAMOTIDINE 20 MG TAB PO SCH ×2 (09:05→20:20)
[2020-12-16] MEDS: lisinopril 40 MG TAB PO SCH (09:05)
[2020-12-16] MEDS: hydroCHLOROthiazide 25 MG TAB PO SCH (09:05)
[2020-12-16] MEDS: ZINC SULFATE 220 MG CAPSULE PO SCH (09:05)
--- NOTE | 2020-12-16 10:23 | Hospitalist Progress Note ---
Date of Service December 16, 2020 Assessment & Plan (1) COVID-19: Presents with COVID-19 pneumonia now day 12 of illness, day 4 of hospitalization -Continue dexamethasone x10-day course-last dose will be on 12/22, will change to PO on discharge -Continue Remdesivir x5-day course, last dose tomorrow at noon -Continue azithromycin x5-day course-last day of treatment will be 12/17 Encourage self proning if possible, currently not requiring it, he is 2L, no distress, oxygen requirements have remained stable Continuing nocturnal BiPAP which is what he uses at home plan for two step tomorrow and will discharge in the afternoon after his noon Remdesivir (2) Acute respiratory failure: As above, secondary to COVID-19 pneumonia stable on 2L, no distress at all plan for two step tomorrow complete treatment for COVID 19 (3) HTN (hypertension): Blood pressures here are normal and his lisinopril-HCTZ is currently being held developing some peripheral edema off his HCTZ x 2 days, secondary to dependent edema, obesity -restarted lisinopril/HCTZ on 12/16, BP stable (4) ADHD: Patient wants Adderall held at this time (5) Hypokalemia: Low upon admission and replaced-now resolved (6) GERD (gastroesophageal reflux disease): Patient with indigestion improved with Maalox but may be worsened by steroids Added on Pepcid 20 mg p.o. twice daily while on steroids (7) DVT prophylaxis: Patient will be on 0.5 mg/kg weight-based Lovenox therapy for DVT prevention with Covid infection Disposition-continued stay but plan for discharge tomorrow Admission and Anticipated Discharge Date Admission Date: December 13, 2020 Subjective patient feeling better each day, eating well, drinking well, no fever/chills has a cough with some intermittent yellow/brown sputum but not much does not feel short of breath at rest or on exertion, stable on 2L for several days reviewed chart, reviewed labs (all stable) discussed that tomorrow is day 5 of Remdesivir, could get a two step and get him home tomorrow he likes that plan he says his is home sick with COVID but she is holding her own for now, he would like to be with her Review of Systems Review of Systems: All systems reviewed & are unremarkable except as noted in Subjective Constitutional: no fever, no chills, no sweats, no fatigue and no weakness Respiratory: + cough and + sputum production; no chest congestion, no dyspnea, no dyspnea on exertion and no pain with cough Cardiovascular: no chest pain and no edema Gastrointestinal: no abdominal pain, no nausea, no vomiting, no constipation and no diarrhea/loose stools Physical Exam Constitutional: WD/WN, vitals as above + overweight Neck: trachea midline, no thyromegaly Respiratory: normal respiratory effort, lungs clear to auscultation no respiratory distress and no labored breathing Cardiovascular: RRR, no murmur, no edema Gastrointestinal (Abdomen): normal bowel sounds, soft, nontender, no hepatosplenomegaly Musculoskeletal: no cyanosis or clubbing, extremities motor strength 5/5 Skin: no rashes, warm and dry Neurologic: patellar DTR's 2+ bilat, sensation intact and PERRL, EOMI, accommodation nl, no face palsy, no dysarthria Psychiatric: A+Ox3, euthymic affect Lymphatic: no cervical or axillary lymphadenopathy Results & Data Results & Data ([facility]) Vital Signs (Past 12 Hours) Vital Signs Temp Pulse Pulse Resp BP Pulse Ox 12/16/20 08:06 36.8 C 59 L 20 123/78 95 12/16/20 03:38 36.5 C 52 L 20 129/78 93 12/16/20 03:35 18 93 12/16/20 00:02 36.8 C 51 L 18 108/57 L 91 12/16/20 00:00 59 L Laboratory Results Laboratory Results - last 24 hr 12/16/20 12/16/20 12/16/20 06:28 06:28 06:28 WBC 4.07 L RBC 4.87 Hgb 14.7 Hct 42.8 MCV 87.9 MCH 30.2 MCHC 34.3 RDW Std Deviation 40.6 RDW Coeff of Barbie 12.6 Plt Count 202 MPV 11.6 H Neutrophils % (Manual) 65.2 Lymphocytes % (Manual) 16.5 Reactive Lymphs % (Man) 12.2 Monocytes % (Manual) 6.1 Neutrophils # (Manual) 2.65 Total Absolute Neuts 2.65 Lymphocytes # (Manual) 0.67 L Reactive Lymphs # 0.50 Total Abs Lymphocytes 1.17 L Monocytes # (Manual) 0.25 Sodium 139 Potassium 3.8 Chloride 105 Carbon Dioxide 29 Anion Gap 6.0 BUN 19 H Creatinine 0.92 Est Cr Clr Drug Dosing 136.5 Est GFR ( Amer) 112.0 Est GFR (Non-Af Amer) 96.6 BUN/Creatinine Ratio 20.4 H Glucose 83 Calcium 8.9 Total Bilirubin 0.6 AST 38 H ALT 59 Alkaline Phosphatase 49 Total Protein 7.1 Albumin 3.4 Globulin 3.7 Albumin/Globulin Ratio 0.9 25-OH Vitamin D Total 70.0 Medications Administered Current Inpatient Medications Acetaminophen (Acetaminophen 325 Mg Tab) 650 mg PO Q4H PRN PRN Reason: Pain or Fever Stop: 01/12/21 13:17 Al Hydrox/Mg Hydrox/Simethicone (Aluminum/Magnesium Susp 30 Ml Udc) 15 ml PO Q4H PRN PRN Reason: Dyspepsia Stop: 01/12/21 13:17 Last Admin: 12/14/20 06:13 Dose: 15 ml Documented by: Azithromycin (Azithromycin 250 Mg Tab) 250 mg PO QAM [facility] Stop: 12/21/20 08:59 Last Admin: 12/16/20 09:05 Dose: 250 mg Documented by: Benzonatate (Benzonatate 100 Mg Capsule) 100 mg PO TID PRN PRN Reason: Cough Stop: 01/13/21 14:28 Clonidine HCl (Clonidine Hcl 0.1 Mg Tab) 0.1 mg PO Q8 PRN PRN Reason: Blood Pressure - High Stop: 01/12/21 13:17 Enoxaparin Sodium (Enoxaparin 80 Mg/0.8 Ml Syr) 70 mg SQ Q12 [facility] Stop: 01/12/21 15:59 Last Admin: 12/16/20 09:04 Dose: 70 mg Documented by: Famotidine (Famotidine 20 Mg Tab) 20 mg PO BID [facility] Stop: 01/13/21 14:59 Last Admin: 12/16/20 09:05 Dose: 20 mg Documented by: Guaifenesin/Dextromethorphan (Guaifenesin/Dextrom Syrup 200mg/20mg 10ml Udc) 10 ml PO Q6 [facility] Stop: 01/14/21 14:59 Last Admin: 12/16/20 05:24 Dose: 10 ml Documented by: Hydrochlorothiazide (Hydrochlorothiazide 25 Mg Tab) 25 mg PO DAILY [facility] Stop: 01/14/21 14:59 Last Admin: 12/16/20 09:05 Dose: 25 mg Documented by: Remdesivir 100 mg/ Sodium (Chloride) 250 mls @ 250 mls/hr IV Q24H [facility]; Protocol Stop: 12/17/20 12:59 Last Infusion: 12/15/20 13:15 Dose: Infused Documented by: Dexamethasone 6 mg/ Syringe 1.5 mls @ 1 mls/min IV DAILY [facility] Stop: 12/24/20 08:59 Last Admin: 12/16/20 09:04 Dose: 1 mls/min Documented by: Lisinopril (Lisinopril 40 Mg Tab) 40 mg PO DAILY [facility] Stop: 01/15/21 08:59 Last Admin: 12/16/20 09:05 Dose: 40 mg Documented by: Melatonin (Melatonin 3 Mg Tab) 3 mg PO HS PRN PRN Reason: Sleep Stop: 01/12/21 13:17 Ondansetron HCl (Ondansetron Inj 2 Mg/Ml 2 Ml Vial) 4 mg IV Q6H PRN PRN Reason: Nausea Stop: 01/12/21 13:17 Last Admin: 12/14/20 22:41 Dose: 4 mg Documented by: Sodium Chloride (Sodium Chloride 0.9% 10ml Flush) 30 ml IV DAILY@1200 [facility] Stop: 12/17/20 12:01 Last Admin: 12/15/20 11:54 Dose: 30 ml Documented by: Sodium Chloride (Sodium Chloride 0.65% Na Soln 45 Ml ([place])) 1 sprays NA PRN PRN PRN Reason: Dryness Stop: 01/13/21 23:00 Last Admin: 12/14/20 23:27 Dose: 1 sprays Documented by: Zinc Sulfate (Zinc Sulfate 220 Mg Capsule) 220 mg PO QAM [facility] Stop: 01/13/21 08:59 Last Admin: 12/16/20 09:05 Dose: 220 mg Documented by: PG Care Time/CCT Total # of Minutes Spent Total Time Spent with Patient: Total time spent is greater than 50% in coordination of care (as documented) at patient's floor/unit and/or counseling patient: Coding Level of Care Code 80964 Subseq Hosp Care Lvl 2 Diagnoses COVID-19 U07.1 Acute respiratory failure J96.00 HTN (hypertension) I10 ADHD F90.9 Hypokalemia E87.6 GERD (gastroesophageal reflux disease) K21.9 DVT prophylaxis Z29.9
[2020-12-16] MEDS: REMDESIVIR 100 MG in SODIUM CHLORIDE 0.9% 230 ML IV SCH (13:01)
[2020-12-16] MEDS: SODIUM CHLORIDE 0.9% 10ML FLUSH IV SCH (13:03)
[2020-12-17] MEDS: guaiFENesin/DEXTROM SYRUP 200MG/20MG 10ML UDC PO SCH ×2 (05:02→11:03)
[2020-12-17 08:25] LABS: Alanine Aminotransferase 130 U/L (12-78); Aspartate Aminotransferase 61 U/L (15-37)
[2020-12-17] MEDS: FAMOTIDINE 20 MG TAB PO SCH (08:25)
[2020-12-17] MEDS: dexAMETHasone 6 MG in SYRINGE 0 ML IV SCH (08:25)
[2020-12-17] MEDS: ZINC SULFATE 220 MG CAPSULE PO SCH (08:26)
[2020-12-17] MEDS: ENOXAPARIN 80 MG/0.8 ML SYR SQ SCH (08:26)
[2020-12-17] MEDS: hydroCHLOROthiazide 25 MG TAB PO SCH (08:26)
[2020-12-17] MEDS: lisinopril 40 MG TAB PO SCH (08:26)
[2020-12-17] MEDS: AZITHROMYCIN 250 MG TAB PO SCH (08:26)
[2020-12-17] MEDS: REMDESIVIR 100 MG in SODIUM CHLORIDE 0.9% 230 ML IV SCH (11:03)
--- NOTE | 2020-12-17 11:46 | Discharge Summary ---
Date of Service December 17, 2020 Admission HPI Per Admitting Provider 50-year-old male who presented to the emergency department for an evaluation of difficulty breathing and cough. The patient has had symptoms for approximately 8 days. His and children are also positive for COVID-19. He had a test with his family doctor which was returned recently positive for COVID-19. His was seen in the ER and sent home with a pulse oximeter he was using her pulse oximeter noting his sats were in the 80s. He is markedly dyspneic on exertion. He had 1 day of diarrhea approximately 5 days ago took Imodium and since resolved. He has lost his taste and smell but he feels his taste is slowly coming back. He is significantly breathless with minimal movements around the room. He typically wears BiPAP at night Principal Diagnosis COVID 19 pneumonia with acute hypoxia Discharge Exam Constitutional WD/WN, vitals as above + overweight Neck trachea midline, no thyromegaly Respiratory normal respiratory effort, lungs clear to auscultation no respiratory distress and no labored breathing Cardiovascular RRR, no murmur, no edema Gastrointestinal (Abdomen) normal bowel sounds, soft, nontender, no hepatosplenomegaly Musculoskeletal no cyanosis or clubbing, extremities motor strength 5/5 Skin no rashes, warm and dry Neurologic patellar DTR's 2+ bilat, sensation intact and PERRL, EOMI, accommodation nl, no face palsy, no dysarthria Psychiatric A+Ox3, euthymic affect Lymphatic no cervical or axillary lymphadenopathy Discharge Data Allergies Allergy/AdvReac Type Severity Reaction Status Date / Time atenolol Allergy Unknown TIRED Verified 12/13/20 12:47 Consultations 12/13/20 12:03 ED Decision to Admit Stat Hospital Course (1) COVID-19: Presents with COVID-19 pneumonia now day 13 of illness, day 5 of hospitalization responded well to standard treatment with dexamethasone and Remdesivir completed 5th dose of Remdesivir prior to discharge will take dexamethasone 6mg PO daily for 5 more days completed course of Zithromax eating and drinking well, no fever, breathing well on room air 2 step the day of discharge shows no home oxygen needs at rest and on exertion stay well rested well nourished and well hydrated at home no further need for isolation/quarantine (2) Acute respiratory failure: As above, secondary to COVID-19 pneumonia only required low flow oxygen during his stay able to titrate down to room air prior to discharge breathing easy, no distress at all (3) HTN (hypertension): BP stable on home dose of lisinopril and HCTZ (4) ADHD: Patient wants Adderall held at this time (5) Hypokalemia: Low upon admission and replaced-now resolved (6) GERD (gastroesophageal reflux disease): Patient with indigestion improved with Maalox but may be worsened by steroids Added on Pepcid 20 mg p.o. twice daily while on steroids Total Time Total Time Spent Total Time Spent (In Minutes): 35 Total Time Includes: Examination of the Patient, Discharge Planning and Medication Reconciliation Discharge Plan Discharge Items Patient Disposition: Home - Self-Care Reason For Visit: ACUTE RESP FAILURE DUE TO COVID PNEUMONIA Discharge Diagnosis: COVID 19 pneumonia Acute hypoxic respiratory failure Condition on Discharge: Good Goals: stay well nourished, well hydrated, well rested complete course of dexamethasone Activity: Resume your previous activity Driving/Machine Use: No limitations Weightbearing: Full weightbearing Non-emergency contact: Primary Care Provider Call non-emergency contact if: you have any medication questions and your symptoms worsen Follow-up/Referrals: Desiree Crespo PA-C [Primary Care Provider] - 12/27/20 4:10 pm (Please follow up with Desiree Crespo PA-C on Wednesday12/27/20 at 4:10 pm. Please arrive to the office at 3:55 pm for your appointment. If you are unable to keep this appointment, please call the office to reschedule at [phone].) Diet: Heart Healthy Addtl Attending Provider Instructions: Medications: - DEXAMETHASONE: 6mg daily for 5 more days - ZINC: 220mg daily for 5 more days - PEPCID: you can continue to take this twice a day for 10 days, offers GI protection while on the steroids COVID 19 pneumonia, hypoxia responded quite well to dexamethasone, Remdesivir, azithromycin no oxygen needed, breathing better, no fever finish course of dexamethasone at home stay well hydrated, well nourished, well rested no longer need to be on quarantine, continue to wear a mask anytime you are in public Pending Studies at Discharge: No Stand-Alone Forms: My [facility], Smoking Cessation Medications and DC Order Prescriptions: New famotidine 20 mg Tablet 20 mg PO BID 10 Days Qty: 20 RF: 0 zinc sulfate [Orazinc] 50 mg zinc (220 mg) Capsule 220 mg PO QAM 5 Days Qty: 22 RF: 0 dexamethasone 4 mg tablet 6 mg PO DAILY 5 Days Qty: 8 RF: 0 Continued dextroamphetamine-amphetamine [Adderall XR] 20 mg capsule,extended release 24hr 20 mg PO DAILY RF: 0 hydrochlorothiazide 25 mg tablet 25 mg PO DAILY RF: 0 lisinopril 40 mg tablet 40 mg PO DAILY RF: 0 Discharge Orders: Discharge Order (Routine); Ordered 12/17/20 Ordered By: Jonatan England/Other Patient Handouts: COVID-19 Home Care Admission Data Admit Date/Time: 12/13/20 12:41 Attending Provider: Jonatan Pinto Admit Provider: Blair Clark Primary Care Provider: Desiree Crespo Other Providers: Blair Clark Other Interventions: Discharge Summary Assessment (RN) Last Done: 12/17/20 11:52 Coding Level of Care Code D/C Day Management >30 mins Diagnoses COVID-19 U07.1 Acute respiratory failure J96.00 HTN (hypertension) I10 ADHD F90.9 Hypokalemia E87.6 GERD (gastroesophageal reflux disease) K21.9
== END 2020-12-17 12:50 | disposition home or self-care (01) | DRG 177 ==
LOC: ED 08:29 → SUATTDRO 12:41 → 2E 12:41